=== PATIENT | male | born 1980 | race Caucasian/White ===

== ENCOUNTER 2017-02-07 14:33 | Emergency (ER) | payer MEDICAID ==
[~2017-02-07] VITALS: Ht 165.1 cm; Wt 93.8 kg
[2017-02-07 14:36] VITALS: Ht 165.1 cm; Wt 93.8 kg
[2017-02-07] MEDS ORDERED: DIPHENHYDRAMINE 50 MG INJ IV ONE (16:00)
[2017-02-07] MEDS ORDERED: SOD CHLORIDE 0.9% 1,000 ML IV ONE (16:00)
[2017-02-07] MEDS ORDERED: FAMOTIDINE 20 MG TAB PO ONE (16:00)
[2017-02-07] MEDS ORDERED: METHYLPREDNISOLONE 125 MG INJ IV ONE (16:00)
[2017-02-07] MEDS ORDERED: PRED20TA PO (17:37)
[2017-02-07] MEDS ORDERED: DIPH25CA6 PO (17:38)
--- NOTE | 2017-02-07 17:43 | ERD ---
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 Patient states that he has been taking Benadryl however it is not working rash is extremely itchy. He denies any difficulty in breathing he denies any facial swelling. He has not had any fevers or chills. He has had this in the past. ROS 12 point review of systems was done, all negative except per HPI. Medications Home Meds Active Scripts Diphenhydramine Hcl* (Diphenhydramine Hcl*) 25 Mg Capsule, 25 MG PO Q6 Y for ITCHING for 7 Days, CAP Prov:CARLY LOPEZ 02/07/17 Prednisone* (Prednisone*) 20 Mg Tab, 40 MG PO DAILY for 5 Days, TAB Prov:CARLY LOPEZ 02/07/17 Reported Medications [None] No Conflict Check 04/29/10 Allergies Allergies: Coded Allergies: No Known Allergies (Verified Allergy, Mild, 02/07/17) PMhx/Soc History of Surgery: No Anesthesia Reaction: No Hx Neurological Disorder: No Hx Respiratory Disorders: No Hx Cardiac Disorders: No Hx Psychiatric Problems: No Hx Miscellaneous Medical Probl: No Hx Alcohol Use: No Hx Substance Use: No Hx Tobacco Use: No Smoking Status: Never smoker Physical Exam Vitals Vital Signs Date Time Temp Pulse Resp B/P Pulse Ox O2 Delivery O2 Flow Rate FiO2 02/07/17 14:36 98.8 74 20 130/81 98 Physical Exam GENERAL: The patient is well developed and appropriate for usual state of health , in no apparent distress. HEENT: Atraumatic. No lip, tongue, eyes swelling CHEST: Clear to auscultation bilaterally. There are no rales, wheezes or rhonchi. HEART: Regular rate and rhythm. No murmurs, clicks, rubs or gallops. BACK: No midline or flank tenderness. NEURO: Alert and oriented. SKIN:: Macular raised rash all over body. Results 24 hrs Current Medications Medications (Trade) Dose Ordered Sig/Eric Route PRN Reason Start Time Stop Time Status Last Admin Dose Admin Methylprednisolone Sodium Succinate (Solu-Medrol) 125 mg ONCE ONCE IV 02/07/17 16:00 02/07/17 16:01 DC 02/07/17 16:18 Diphenhydramine HCl 50 mg 50 mg ONCE ONCE IV 02/07/17 16:00 02/07/17 16:01 DC 02/07/17 16:17 Sodium Chloride (NS) 1,000 ml @ 1,000 mls/hr Q1H ONCE IV 02/07/17 16:00 02/07/17 16:59 DC 02/07/17 16:17 Famotidine (Pepcid) 20 mg ONCE ONCE PO 02/07/17 16:00 02/07/17 16:01 DC 02/07/17 16:17 Procedures/MDM Differential Diagnosis: dermatitis, allergic urticaria, viral exanthem, insect bite, fungal infectio ,viral exanthem, hand foot mouth disease, , impetigo, cellulitis, abscess, zuhair emelia syndrome, meningocemia, necrotizing fasciitis, myositis. Clinical suspcicion for necrotizing fasciitis or myositis is low. There are no skip leasions or pain away from the site of the rash. Clinical suspicion for zuhair emelia syndrome is low. There is not history new medication use or mucosal involvement. Patient was given IV Solu-Medrol, fluids , Benadryl and p.o. morning in the ER there was some resolution of the rash in the ER he felt significantly better. Suspicion for anaphylactic shock is low as he does not have any difficulty in breathing. He will be sent home with some steroids and Benadryl. He was advised to avoid poison oak. He needs to follow-up with his primary care doctor within 1-2 days return to ER sooner if symptoms worsen. My medical decision making sure with the patient understands and agrees with plan. Departure Diagnosis: Primary Impression: Rash Condition: Stable Patient Instructions: Self-Care for Skin Rashes Additional Instructions: Call your primary care doctor TOMORROW for an appointment during the next 1-2 days.See the doctor sooner or return here if your condition worsens before your appointment time. CARLY LOPEZ Feb 07, 2017 17:43
[2017-02-07 17:51] VITALS: BP 129/78; PULSE 79; RESP 20; TEMP 98.1
== END 2017-02-07 17:56 | disposition home or self-care (01) ==
LOC: FTE 14:33
DX: R21 Rash and other nonspecific skin eruption (principal)
CPT/HCPCS: 96374; 96375; J1200; J2930; J7030; Z7502; Z7610

== ENCOUNTER 2018-01-27 20:39 | Emergency (ER) | END 2018-01-28 01:55 | disposition home or self-care (01) ==